=== PATIENT | female | born 1995 | race Caucasian/White ===

== ENCOUNTER 2021-08-18 08:42 | Outpatient (CLI) | payer OTHER ==
[2021-08-18 10:02] LABS: BASOPHILS % (AUTO) 0.2 % (0.0-2.0); EOSINOPHILS # (AUTO) 0.1 K/uL (0.0-0.4); EOSINOPHILS % (AUTO) 0.6 % (0.0-4.0); HEMATOCRIT 34.2 % (36-48); HEMOGLOBIN 11.7 g/dL (12.0-16.0); LYMPHOCYTES # (AUTO) 2.4 K/uL (1.0-5.5); LYMPHOCYTES % (AUTO) 22.9 % (20.5-51.5); MEAN CORPUSCULAR HEMOGLOBIN 30 pg (27-31); MEAN CORPUSCULAR HGB CONC 34 % (32-36); MEAN CORPUSCULAR VOLUME 89 fL (79.0-98.0); MONOCYTES # (AUTO) 0.6 K/uL (0.0-1.0); NEUTROPHILS # (AUTO) 7.3 K/uL (1.8-7.7); NEUTROPHILS % (AUTO) 70.3 % (40.0-70.0); PLATELET COUNT (AUTO) 228 K/uL (130-430); RED BLOOD CELL COUNT(AUTO) 3.86 MIL/uL (4.2-6.2); RED CELL DISTRIBUTION WIDTH 12.8 % (9.0-15.0); WHITE BLOOD COUNT (AUTO) 10.4 K/uL (4.8-10.8)
== END 2021-08-18 20:21 | disposition home or self-care (01) ==
LOC: SLB 08:42
PROVIDERS: ATTEND Specialist
DX: Z34.82 Encounter for supervision of other normal pregnancy, second trimester (principal); Z3A.00 Weeks of gestation of pregnancy not specified
CPT/HCPCS: 36415; 82947; 82950; 85025

== ENCOUNTER 2021-09-26 15:12 | Observation (INO) | payer OTHER ==
[~2021-09-26] VITALS: Ht 160 cm; Wt 69.9 kg
[2021-09-26] MEDS ORDERED: LR 1,000 ML IV ONE (16:15)
[2021-09-26] MEDS ORDERED: LR 1,000 ML IV SCH (16:15)
[2021-09-26] MEDS ORDERED: TERBUTALINE SULFATE 1 MG/ML VIAL SUBCUT ONE (16:15)
[2021-09-26 16:30] LABS: BASOPHILS % (AUTO) 0.3 % (0.0-2.0); EOSINOPHILS # (AUTO) 0.1 K/uL (0.0-0.4); EOSINOPHILS % (AUTO) 0.5 % (0.0-4.0); HEMATOCRIT 32.1 % (36-48); LYMPHOCYTES # (AUTO) 2.5 K/uL (1.0-5.5); LYMPHOCYTES % (AUTO) 22.4 % (20.5-51.5); MEAN CORPUSCULAR HEMOGLOBIN 30 pg (27-31); MEAN CORPUSCULAR HGB CONC 34 % (32-36); MEAN CORPUSCULAR VOLUME 88 fL (79.0-98.0); MONOCYTES # (AUTO) 0.6 K/uL (0.0-1.0); MONOCYTES % (AUTO) 5.4 % (1.7-9.3); NEUTROPHILS % (AUTO) 71.4 % (40.0-70.0); PLATELET COUNT (AUTO) 212 K/uL (130-430); RED BLOOD CELL COUNT(AUTO) 3.67 MIL/uL (4.2-6.2); RED CELL DISTRIBUTION WIDTH 13.3 % (9.0-15.0); WHITE BLOOD COUNT (AUTO) 11.3 K/uL (4.8-10.8)
[2021-09-30 21:06] LABS: FTA-Ab (T PALLIDUM) Non Reactive (Non Reactive)
== END 2021-09-26 17:30 | disposition home or self-care (01) ==
LOC: INTOOBSV 15:12 → SPU 15:12
PROVIDERS: ADMIT Specialist; ATTEND Specialist
DX: Z34.83 Encounter for supervision of other normal pregnancy, third trimester (principal); Z3A.39 39 weeks gestation of pregnancy
CPT/HCPCS: 36415; 85025; 86592; 86780; 86886; 86900; 86901; G0378

== ENCOUNTER 2021-09-27 08:35 | Inpatient (IN) | payer OTHER ==
[~2021-09-27] VITALS: Ht 160 cm; Wt 69.9 kg
[2021-09-27 10:15] VITALS: BP_SYST 128
[2021-09-27] MEDS ORDERED: LR 1,000 ML IV SCH (10:30)
[2021-09-27] MEDS ORDERED: TERBUTALINE SULFATE 1 MG/ML VIAL SUBCUT ONE (10:30)
[2021-09-27] MEDS ORDERED: LR 1,000 ML IV ONE (10:30)
[2021-09-27] MEDS ORDERED: OXYTOCIN/0.9 % SODIUM CHLORIDE 1,000 ML IV SCH (10:30)
[2021-09-27] MEDS ORDERED: fentaNYL CITRATE/PF 100 MCG/2 ML AMP ONE (18:51)
[2021-09-27] MEDS ORDERED: ROPIVACAINE HCL/PF 0.2% 200 ML ONE (18:51)
[2021-09-27] MEDS ORDERED: ONDANSETRON HCL 4 MG/2 ML VIAL IVP PRN (19:00)
[2021-09-27] MEDS ORDERED: FENT2mCg/mL-ROPIVA0.2%/NS EPID 200 ML EP SCH (19:00)
[2021-09-27] MEDS ORDERED: LIGHT MINERAL OIL 10 ML VIAL MC ONE (19:51)
[2021-09-27] MEDS ORDERED: NALOXONE HCL 0.4 MG/ML AMP (NARCAN) ONE (19:51)
[2021-09-27] MEDS ORDERED: LIDOCAINE PF 1% 30ML(POUR BTL) INJ ONE (19:51)
[2021-09-28] MEDS ORDERED: DIPHENHYDRAMINE INJ 50 MG/ML VIAL IVP PRN ×2 (00:45→20:15)
[2021-09-28] MEDS ORDERED: fentaNYL CITRATE/PF 100 MCG/2 ML AMP ONE ×2 (11:15→20:54)
[2021-09-28] MEDS ORDERED: ROPIVACAINE HCL/PF 0.2% 200 ML ONE (11:16)
[2021-09-28] MEDS ORDERED: NALOXONE HCL 0.4 MG/ML AMP (NARCAN) IVP PRN ×3 (20:15→20:30)
[2021-09-28] MEDS ORDERED: ONDANSETRON HCL 4 MG/2 ML VIAL IVP PRN ×2 (20:15)
[2021-09-28] MEDS ORDERED: KETOROLAC TROMETHAMINE 60 MG/2 ML VIAL IM PRN (20:15)
[2021-09-28] MEDS ORDERED: fentaNYL CITRATE/PF 100 MCG/2 ML AMP IVP PRN (20:15)
[2021-09-28] MEDS ORDERED: METOCLOPRAMIDE HCL 10 MG/2 ML VIAL IVP PRN (20:15)
[2021-09-28] MEDS ORDERED: NALBUPHINE HCL 10 MG/ML AMP IVP PRN (20:15)
[2021-09-28 20:24] VITALS: BP_SYST 145
[2021-09-28] MEDS ORDERED: ANUSOL 1 EA SUPP.RECT (PREPARATION H) RC PRN (20:30)
[2021-09-28] MEDS ORDERED: EPINEPHrine HCL 1 MG/ML VIAL ONE (20:30)
[2021-09-28] MEDS ORDERED: DIPH-TET-PERTUS Vaccine 0.5 ML VIAL (ADACEL) I.M. PRN (20:30)
[2021-09-28] MEDS ORDERED: OXYCODONE/ACETAMINOPHEN 5-325 TABLET PO PRN (20:30)
[2021-09-28] MEDS ORDERED: TEMAZEPAM 15 MG CAPSULE PO PRN (20:30)
[2021-09-28] MEDS ORDERED: MIDAZOLAM HCL 5 MG/ML VIAL (VERSED) IV ONE (20:30)
[2021-09-28] MEDS ORDERED: MEASLES,MUMPS&RUBELLA VACC/PF 12500 UNIT/0.5 ML VIAL SUBQ PRN (20:30)
[2021-09-28] MEDS ORDERED: LR 1,000 ML IV SCH (20:30)
[2021-09-28] MEDS ORDERED: BISACODYL 10 MG/SUPPOSITORY RC PRN (20:30)
[2021-09-28] MEDS ORDERED: MORPHINE SULFATE 10MG/10ML PF AMP ONE (20:30)
[2021-09-28] MEDS ORDERED: HYDROcodone/ACETAMIN 5-325 MG TAB (NORCO/ VICODIN) PO PRN (20:30)
[2021-09-28] MEDS ORDERED: BUPIVACAINE /EPINEPHRINE/PF 0.5% 30 ML VIAL INJ ONE (20:30)
[2021-09-28] MEDS ORDERED: LR 1,000 ML IV.SOLN IV ONE (20:30)
[2021-09-28] MEDS ORDERED: LANOLIN 7 GM OINT. TP PRN (20:30)
[2021-09-28] MEDS ORDERED: RHO(D) IMMUNE GLOBULIN/MALTOSE 1500 UNITS/1.3 ML (WINHRO) IM PRN (20:30)
[2021-09-28] MEDS: fentaNYL CITRATE/PF 100 MCG/2 ML AMP IVP PRN ×2 (21:00→21:05)
[2021-09-29] MEDS ORDERED: ceFAZolin SODIUM 1 GM VIAL ONE ×2 (00:52→05:57)
[2021-09-29] MEDS: CEFAZOLIN 1 GM IVPB PREMIX 50 ML IV SCH ×3 (00:58→11:57)
[2021-09-29] MEDS: OXYTOCIN/0.9 % SODIUM CHLORIDE 1,000 ML IV SCH ×3 (00:59→16:36)
[2021-09-29] MEDS ORDERED: ACETAMINOPHEN I.V. 1000 MG 100 ML IV SCH (03:00)
[2021-09-29] MEDS: KETOROLAC TROMETHAMINE 30 MG VIAL IVP SCH ×3 (06:03→18:12)
[2021-09-29 06:52] LABS: BASOPHILS % (AUTO) 0.1 % (0.0-2.0); EOSINOPHILS % (AUTO) 0.1 % (0.0-4.0); HEMATOCRIT 27.2 % (36-48); HEMOGLOBIN 9.1 g/dL (12.0-16.0); LYMPHOCYTES # (AUTO) 2.3 K/uL (1.0-5.5); LYMPHOCYTES % (AUTO) 15.9 % (20.5-51.5); MEAN CORPUSCULAR HEMOGLOBIN 30 pg (27-31); MEAN CORPUSCULAR HGB CONC 34 % (32-36); MEAN CORPUSCULAR VOLUME 88 fL (79.0-98.0); MONOCYTES # (AUTO) 0.7 K/uL (0.0-1.0); MONOCYTES % (AUTO) 4.5 % (1.7-9.3); NEUTROPHILS # (AUTO) 11.4 K/uL (1.8-7.7); NEUTROPHILS % (AUTO) 79.4 % (40.0-70.0); PLATELET COUNT (AUTO) 158 K/uL (130-430); RED BLOOD CELL COUNT(AUTO) 3.08 MIL/uL (4.2-6.2); RED CELL DISTRIBUTION WIDTH 13.8 % (9.0-15.0); WHITE BLOOD COUNT (AUTO) 14.4 K/uL (4.8-10.8)
[2021-09-29] MEDS: DOCUSATE SODIUM 100 MG CAPSULE PO SCH (11:57)
[2021-09-30] MEDS: SENNOSIDES/DOCUSATE SODIUM 1 TAB TABLET(SENOKOT-S) PO SCH ×2 (00:04→20:06)
[2021-09-30] MEDS: KETOROLAC TROMETHAMINE 30 MG VIAL IVP SCH (00:05)
[2021-09-30] MEDS: SIMETHICONE 80 MG TAB.CHEW PO PRN ×5 (00:05→20:06)
[2021-09-30] MEDS: IBUPROFEN 600 MG TABLET PO SCH ×4 (05:53→23:44)
[2021-09-30] MEDS: DOCUSATE SODIUM 100 MG CAPSULE PO SCH ×2 (09:13→20:06)
[2021-10-01] MEDS: IBUPROFEN 600 MG TABLET PO SCH (06:03)
[2021-10-01] MEDS: OXYCODONE/ACETAMINOPHEN *10*mg/325 mg TABLET PO PRN ×2 (07:55→11:25)
[2021-10-01] MEDS ORDERED: OXYC-128 PO (08:13)
[2021-10-01] MEDS: DOCUSATE SODIUM 100 MG CAPSULE PO SCH (09:45)
[2021-10-01] MEDS: SIMETHICONE 80 MG TAB.CHEW PO PRN (09:45)
== END 2021-10-01 11:30 | disposition home or self-care (01) | DRG 786 ==
LOC: SPU 09:51
PROVIDERS: ADMIT Specialist; ATTEND Specialist
PROC: 10D00Z1 Extraction of Products of Conception, Low, Open Approach (ICD-10-PCS; principal; 2021-09-28 19:30)
DX: O36.5930 Maternal care for other known or suspected poor fetal growth, third trimester, not applicable or unspecified (principal); O99.42 Diseases of the circulatory system complicating childbirth; I31.3 Pericardial effusion (noninflammatory); O41.03X0 Oligohydramnios, third trimester, not applicable or unspecified; O69.81X0 Labor and delivery complicated by cord around neck, without compression, not applicable or unspecified; O32.4XX0 Maternal care for high head at term, not applicable or unspecified; O33.9 Maternal care for disproportion, unspecified; Z3A.39 39 weeks gestation of pregnancy; Z37.0 Single live birth
CPT/HCPCS: 36415; 85025; J0131; J0171; J0690; J1200; J1885; J2001; J2250; J2274; J2310; J2405; J2590; J3010; J3490; J7120